=== PATIENT | male | born 1960 | race Caucasian/White ===

== ENCOUNTER 2021-10-07 22:05 | Emergency (ER) | payer MEDICARE ==
[~2021-10-07 22:05] MED LIST: ANUCORT-HC25 MG PR; COLACE100 MG PO; PROVENTIL2 MG/5 ML PO; VENTOLIN (2.5 MG/3 M INH; VENTOLIN HFA IN18 GM INH; XOPENEX (00.63 MG/3 INH
[2021-10-07 22:42] LABS: BASOPHIL 0.8 % (0-2); EOSINOPHIL 7.9 % (0-5); HCT 45.6 % (42.0-52.0); HGB 14.7 g/dl (13.2-18.0); LYMPHOCYTE 18.7 % (15-48); MCH 29.1 pg (25.0-31.0); MCHC 32.2 g/dL (32.0-36.0); MCV 90.3 fL (78.0-100.0); MONOCYTE 12.1 % (0-12); MPV 8.5 fL (6.0-9.5); NEUTROPHIL 59.8 % (41-80); NRBC 0; PLT 394 K/uL (150-400); RBC 5.05 M/uL (4.70-6.00); RDW 13.4 % (11.5-14.0); WBC 7.5 K/uL (4.0-10.5)
[2021-10-07 22:51] LABS: INR 0.99 (0.9-1.2); PROTHROMBIN TIME 12.5 SECONDS (11.8-13.4); PTT 29.2 SECONDS (24.4-34.7)
[2021-10-07 22:53] LABS: D-DIMER 0.38 ug/mLFEU (0.00-0.41)
[2021-10-07 23:11] LABS: ALBUMIN 3.1 g/dL (3.4-5.0); BILIRUBIN - TOTAL 0.3 mg/dL (0.2-1.0); BUN/CREAT RATIO (CALC) 17.1 RATIO; CREATININE 1.11 mg/dL (0.67-1.17); GLOBULIN (CALCULATION) 4.1 g/dL; MAGNESIUM 1.9 mg/dL (1.8-2.4); POTASSIUM 4.1 mmol/L (3.5-5.1); TOTAL PROTEIN 7.2 g/dL (6.4-8.2)
[2021-10-07 23:47] LABS: CORONAVIRUS 2019 SARS-COV-2 NEGATIVE (NEGATIVE); INFLUENZA A NAA NEGATIVE (NEGATIVE)
[2021-10-08] MEDS ORDERED: MEDROL 4MG DOSEP4 MG PO (01:35)
[2021-10-08] MEDS ORDERED: PROMETHAZINE-C473 ML PO ×2 (01:35→09:28)
[2021-10-08] MEDS ORDERED: ZPAK PO (01:35)
== END 2021-10-08 01:57 | disposition home or self-care (01) ==
LOC: FER 22:05
PROVIDERS: Emergency Medicine; Nurse Practitioner Family
DX: J40 Bronchitis, not specified as acute or chronic (principal); J43.9 Emphysema, unspecified; M79.662 Pain in left lower leg; I10 Essential (primary) hypertension; Z20.822 Contact with and (suspected) exposure to COVID-19; Z87.891 Personal history of nicotine dependence
CPT/HCPCS: 36415; 36600; 71045; 71275; 80053; 82728; 82803; 83605; 83690; 83735; 83880; 84145; 84484; 85025; 85379; 85610; 85730; 87040; 93005; 93971; 94640; 94664; J1100; J2543; J7030; Q9967; U0002

== ENCOUNTER 2021-12-11 23:45 | Emergency (ER) | payer MEDICARE ==
[~2021-12-11 23:45] MED LIST changes: +MEDROL 4MG DOSEP4 MG PO; +PROMETHAZINE-C473 ML PO; +ZPAK PO
[2021-12-12 00:47] LABS: BASOPHIL 0.9 % (0-2); HCT 45.1 % (42.0-52.0); HGB 14.4 g/dl (13.2-18.0); LYMPHOCYTE 18.5 % (15-48); MCH 29.2 pg (25.0-31.0); MCHC 31.9 g/dL (32.0-36.0); MCV 91.5 fL (78.0-100.0); MONOCYTE 14.5 % (0-12); MPV 8.9 fL (6.0-9.5); NEUTROPHIL 62.8 % (41-80); NRBC 0; PLT 250 K/uL (150-400); RBC 4.93 M/uL (4.70-6.00); WBC 5.7 K/uL (4.0-10.5)
[2021-12-12 01:03] LABS: BUN/CREAT RATIO (CALC) 13.6 RATIO; CREATININE 1.1 mg/dL (0.67-1.17); POTASSIUM 3.9 mmol/L (3.5-5.1)
[2021-12-12] MEDS ORDERED: PREDNISONE 20MG20 MG PO (01:13)
[2021-12-12] MEDS ORDERED: AZITHROMYCIN250 MG PO (01:13)
[2021-12-12] MEDS ORDERED: MUCINEX1200 MG PO (01:57)
== END 2021-12-12 02:10 | disposition home or self-care (01) ==
LOC: FER 23:45
PROVIDERS: Internal Medicine
DX: J44.1 Chronic obstructive pulmonary disease with (acute) exacerbation (principal); I10 Essential (primary) hypertension; Z87.891 Personal history of nicotine dependence; Z79.899 Other long term (current) drug therapy
CPT/HCPCS: 36415; 71045; 80048; 84145; 84484; 85025; 93005; 94640; J2930

== ENCOUNTER → 2022-05-27 | Day surgery (SDC) | payer MEDICARE ==
[~2022-05-27] VITALS: Ht 167.6 cm; Wt 72.6 kg
[~2022-05-27] MED LIST changes: +ASPIRIN81 MG PO; +AZITHROMYCIN250 MG PO; +B-12; +FLONASE ALLER15.8 ML; +LEXAPRO 10MG TA10 MG PO; +MUCINEX1200 MG PO; +PREDNISONE 20MG20 MG PO; +PROBIOTIC ACID1 EAC3 PO; +SYMBICORT 80-10.2 GM INH; +TESSALON PERLE100 MG PO; +TOPROL XL 50 MG50 MG PO
== END | disposition home or self-care (01) ==
LOC: FAS 07:44
DX: Z12.11 Encounter for screening for malignant neoplasm of colon (principal); K57.30 Diverticulosis of large intestine without perforation or abscess without bleeding; K22.70 Barrett's esophagus without dysplasia; K29.60 Other gastritis without bleeding; K21.9 Gastro-esophageal reflux disease without esophagitis; K31.9 Disease of stomach and duodenum, unspecified; K64.8 Other hemorrhoids; K64.4 Residual hemorrhoidal skin tags; Z90.49 Acquired absence of other specified parts of digestive tract; J44.9 Chronic obstructive pulmonary disease, unspecified; I10 Essential (primary) hypertension; Z87.891 Personal history of nicotine dependence; Z79.51 Long term (current) use of inhaled steroids; Z79.899 Other long term (current) drug therapy
CPT/HCPCS: J2250; J2704; J7120